=== PATIENT | female | born 1990 | race Caucasian/White ===

== ENCOUNTER 2017-11-18 09:47 | Outpatient (CLI) | payer BC ==
--- NOTE | 2017-11-18 10:56 | ULT ---
RIGHT UPPER QUADRANT SONOGRAM: HISTORY: Abnormal liver function tests. FINDINGS: The gallbladder is surgically absent. The common duct is 0.3 cm. The liver is heterogeneous and hyp erechoic. No free fluid. IMPRESSION: 1. Status post cholecystectomy. No evidence of biliary obstruction. 2. Hepatosteatosis. POS: [facility]
== END 2017-11-18 09:48 | disposition home or self-care (01) ==
LOC: SCSULT 09:47
PROVIDERS: ATTEND Internal Medicine
DX: K76.0 Fatty (change of) liver, not elsewhere classified (principal); Z90.49 Acquired absence of other specified parts of digestive tract
CPT/HCPCS: 76705